=== PATIENT | male | born 1970 | race Caucasian/White ===

== ENCOUNTER 2017-08-04 08:44 | Emergency (ER) | payer OTHER ==
[2017-08-04 09:24] LABS: ADD MAN DIFF? NO
[2017-08-04 09:27] LABS: BASO # 0.1 x10^3/uL (0.0-0.2); BASO % 1 % (0-3); EOS # 0.2 x10^3/uL (0.0-0.7); EOS % 2 % (0-3); HEMATOCRIT 44.3 % (39.0-53.0); HEMOGLOBIN 15.2 g/dL (13.0-17.5); LYMPH # 2.5 x10^3/uL (1.0-4.8); LYMPH % 24 % (24-48); MEAN CORPUSCULAR HEMOGLOBIN 31 pg (25-35); MEAN CORPUSCULAR HGB CONC 34 g/dL (31-37); MEAN CORPUSCULAR VOLUME 89 fL (79-100); MONO # 0.7 x10^3/uL (0.0-1.1); MONO % 7 % (0-9); NEUT # 6.9 x10^3uL (1.8-7.7); NEUT % 67 % (31-73); PLATELET COUNT 317 x10^3/uL (140-400); RED BLOOD COUNT 4.99 x10^6/uL (4.30-5.70); RED CELL DISTRIBUTION WIDTH 13.5 % (11.5-14.5); WHITE BLOOD COUNT 10.3 x10^3/uL (4.0-11.0)
[2017-08-04] MEDS: IV NORMAL SALINE 1000ML BAG 1,000 ML IV (09:32)
[2017-08-04 09:43] LABS: ANION GAP 11 (6-14); BLOOD UREA NITROGEN 14 mg/dL (8-26); BUN/CREATININE RATIO 16 (6-20); CALCIUM 9.1 mg/dL (8.5-10.1); CARBON DIOXIDE 25 mmol/L (21-32); CHLORIDE 104 mmol/L (98-107); CREATININE 0.9 mg/dL (0.7-1.3); GFR 90.8; GLUCOSE 103 mg/dL (70-99); POTASSIUM 4.7 mmol/L (3.5-5.1); SODIUM 140 mmol/L (136-145)
[2017-08-04 09:45] LABS: BILIRUBIN,URINE NEGATIVE (NEG); CLARITY,URINE CLEAR; COLOR,URINE YELLOW; GLUCOSE,URINE NEGATIVE (NEG); NITRITE,URINE NEGATIVE (NEG); PROTEIN,URINE NEGATIVE (NEG-TRACE); UROBILINOGEN,URINE 0.2 mg/dL (0.2 mg/dL)
[2017-08-04 09:49] LABS: ALBUMIN/GLOBULIN RATIO 1.3 (1.0-1.7); ALK PHOS 86 U/L (46-116); ALT (SGPT) 30 U/L (16-63); AST (SGOT) 14 U/L (15-37); MAGNESIUM 2.2 mg/dL (1.8-2.4); TOTAL BILIRUBIN 0.2 mg/dL (0.2-1.0); TOTAL PROTEIN 7.1 g/dL (6.4-8.2)
[2017-08-04 09:52] LABS: TROPONINI < 0.017 ng/mL (0.000-0.055)
[2017-08-04 09:56] LABS: FREE T4 0.77 ng/dL (0.76-1.46); NT-PRO BNP 80 pg/mL (0-124)
[2017-08-04 09:56] LABS: BACTERIA,URINE 0 /HPF (0-FEW); CKMB INDEX 1.1 % (0-4); CKMB MASS 1.7 ng/mL (0.0-3.6); CREATINE KINASE 154 U/L (39-308); RBC,URINE 0 /HPF (0-2); THYROID STIM HORMONE (TSH) 2.349 uIU/mL (0.358-3.74); WBC,URINE 0 /HPF (0-4)
== END 2017-08-04 11:30 | disposition home or self-care (01) ==
LOC: ER 08:44
DX: R42 Dizziness and giddiness (principal); R53.83 Other fatigue; F32.9 Major depressive disorder, single episode, unspecified; E55.9 Vitamin D deficiency, unspecified; F17.210 Nicotine dependence, cigarettes, uncomplicated; Z88.0 Allergy status to penicillin
CPT/HCPCS: 36415; 71045; 80053; 81001; 82553; 83735; 83880; 84439; 84443; 84484; 85025; 93005; 96360; 99285-25; J7030